=== PATIENT | male | born 1990 | race Caucasian/White ===

== ENCOUNTER 2017-10-07 04:58 | Emergency (ER) | payer BC ==
[~2017-10-07] VITALS: Ht 182.9 cm; Wt 94.0 kg
--- NOTE | 2017-10-07 05:19 | PHYS DOC ---
Past History Past Medical History: No Pertinent History Past Surgical History: No Surgical History Alcohol Use: Occasionally Drug Use: None Adult General Chief Complaint Chief Complaint: NAUSEA/VOMITING/DIARRHEA HPI HPI Patient is a 19-year-old male presents to complaints of vomiting and diarrhea that are nonbloody. It started approximately at 2330. Patient also complains of diffuse body aches. Patient thinks he may have eaten some bad food. Patient denies any URI symptoms. Unknown if sick contacts. Has vomited was approximately an hour prior to arrival, loose stool was about 45 minutes prior to arrival. Patient denies any significant past medical history. Review of Systems Review of Systems Constitutional: Denies fever or chills [] HENT: Denies nasal congestion or sore throat [] Respiratory: Denies cough or shortness of breath [] Cardiovascular: No chest pain GI: As per history of present illness Musculoskeletal: Diffuse body aches Integument: Denies rash or skin lesions [] Neurologic: Denies headache, focal weakness or sensory changes [] All other systems were reviewed and found to be within normal limits, except as documented in this note. Allergies Allergies Allergies Coded Allergies Type Severity Reaction Last Updated Verified No Known Drug Allergies 10/07/17 No Physical Exam Physical Exam Constitutional: Well developed, well nourished, no acute distress, non-toxic appearance. [] HENT: Normocephalic, atraumatic, bilateral external ears normal, oropharynx dry , no oral exudates, nose normal. [] Eyes: EOMI, conjunctiva normal, no discharge. [] Neck: Normal range of motion, trachea midline no stridor. [] Cardiovascular:Heart rate regular rhythm, no murmur normal perfusion Lungs & Thorax: Bilateral breath sounds clear to auscultation no tachypnea Abdomen: Bowel sounds normal, soft, no tenderness, no masses, no pulsatile masses. [] Skin: Warm, dry, no erythema, no rash. [] Back: Normal range of motion Extremities: No tenderness, no DVT, ROM intact, no edema. [] Neurologic: Alert and oriented X 3, normal motor function, ambulates in the ED with normal gait and without assistance, no focal deficits noted. [] Psychologic: Affect normal, judgement normal, mood normal. [] EKG EKG [] Radiology/Procedures Radiology/Procedures [] Course & Med Decision Making Course & Med Decision Making Pertinent Labs and Imaging studies reviewed. (See chart for details) I-STAT chemistries reviewed and found to be unremarkable 0600 pt in nad, no vomiting or BMs in ED [] Dragon Disclaimer Dragon Disclaimer This electronic medical record was generated, in whole or in part, using a voice recognition dictation system. Departure Departure: Impression: Primary Impression: Vomiting and diarrhea Additional Impression: Dehydration Disposition: HOME, SELF-CARE Condition: STABLE Referrals: DONNA ARMSTRONG MD (PCP) Please follow-up with your PCP for recheck and reevaluation in 2-3 days Patient Instructions: Diarrhea, Nausea and Vomiting Scripts Loperamide HCl (Imodium A-D) 2 Mg Capsule 2 MG PO TID for 3 Days, #9 CAP Prov: Avel SCHULER MD 10/07/17 Ondansetron Hcl (ONDANSETRON HCL) 4 Mg Tablet 1 TAB PO PRN Q6HRS, #10 TAB 1 Refill Prov: Avel SCHULER MD 10/07/17 Problem Qualifiers Avel SCHULER MD Oct 07, 2017 05:19
[2017-10-07] MEDS ORDERED: ONDANSETRON PF 4 MG/2 ML VIAL. IV ONE (05:30)
[2017-10-07] MEDS ORDERED: LOPERAMIDE 2 MG CAPSULE PO ONE (05:30)
[2017-10-07] MEDS ORDERED: IV NORMAL SALINE 1,000ML 1,000 ML IV ONE (05:30)
[2017-10-07 05:39] LABS: HEMOGLOBIN ISTAT 15.6 gm/dL; POTASSIUM ISTAT 3.9 mmol/L (3.5-5.0)
[2017-10-07] MEDS ORDERED: LOPE2CAP88 PO (06:01)
[2017-10-07] MEDS ORDERED: ONDA4TAB11 PO (06:01)
[2017-10-07 06:06] LABS: INFLUENZA A PATIENT NEGATIVE (NEGATIVE); INFLUENZA B PATIENT NEGATIVE (NEGATIVE)
[2017-10-07 06:17] VITALS: BP 126/74
== END 2017-10-07 06:20 | disposition home or self-care (01) ==
LOC: ER 04:58
DX: E86.0 Dehydration (principal); R11.10 Vomiting, unspecified; R19.7 Diarrhea, unspecified
CPT/HCPCS: 80047; 85014; 85018; 87804; 96361; 96374; 99284; J2405; J7030